=== PATIENT | male | born 1955 | race Caucasian/White ===

== ENCOUNTER 2019-01-31 00:20 | Inpatient (IN) | payer MEDICAID ==
[~2019-01-31] VITALS: Ht 190.5 cm; Wt 73.6 kg
[2019-01-31] MEDS ORDERED: MIRT45TA57 PO (00:40)
[2019-01-31] MEDS ORDERED: OMEP-110 PO (00:41)
[2019-01-31] MEDS ORDERED: QUET100T4 PO (00:42)
[2019-01-31] MEDS ORDERED: GABA600T7 PO (00:42)
--- NOTE | 2019-01-31 00:43 | NUR ---
PT BIB [facility] WITH C/O SI. PT CALLED [address] [facility] AND STATED THAT HE WAS GOING TO WALK INTO ONCOMING TRAFFIC. PT NEW TO [place]. PT ARRIVED BY BUS MONDAY AND HAS BEEN HAVING SI EVER SINCE. PT WITH PMH OF BIPOLAR. PT NON COMPLIANT WITH MEDICATIONS. PT CHANGED INTO GOWN AND RESTING IN GURNEY UPON ARRIVAL TO [facility]. PT BELONGINGS CONFISCATED AND SECURED IN LOCKED STORAGE. ROOM SECURED FOR PATIENT AND STAFF SAFETY. SITTER OUTSIDE OF PT ROOM AT THIS TIME FOR DIRECT OBSERVATION. PT VSS UPON ARRIVAL TO [facility] ED. AWAITING ERP AT THIS TIME. URINE PROVIDED VOLUNTARILY BY PATIENT.
[2019-01-31 00:48] LABS: BASOPHILS # (AUTO) 0.04 x10^3/uL (0-0.1); BASOPHILS % (AUTO) 0 % (0-1); EOSINOPHILS # (AUTO) 0.06 x10^3/uL (0-0.4); EOSINOPHILS % (AUTO) 1 % (1-7); LYMPHOCYTES # (AUTO) 1.44 x10^3/uL (1-3.4); LYMPHOCYTES % (AUTO) 14 % (22-44); MD NO; MEAN CORPUSCULAR HEMOGLOBIN 31.4 pg (27.5-34.5); MEAN CORPUSCULAR HGB CONC 33.8 g/dL (33.2-36.2); MEAN CORPUSCULAR VOLUME 92.7 fL (81-97); MEAN PLATELET VOLUME 7.6 fL (7.4-10.4); MONOCYTES # (AUTO) 0.64 x10^3/uL (0.2-0.8); MONOCYTES % (AUTO) 6 % (2-9); NEUTROPHILS % (AUTO) 80 % (42-75); PLATELET COUNT 383 x10^3/uL (130-400); RED BLOOD COUNT 4.04 x10^6/uL (4.38-5.82); RED CELL DISTRIBUTION WIDTH 14.1 % (9.4-14.8)
[2019-01-31 01:01] LABS: ALBUMIN 3.6 g/dL (3.4-5.0); ANION GAP 8 mmol/L (5-15); CALCIUM 8.3 mg/dL (8.5-10.1); CHLORIDE 112 mmol/L (98-107); CREATININE 0.99 mg/dL (0.7-1.3); SALICYLATE LEVEL 1.7 mg/dL (2.8-20.0)
[2019-01-31 01:08] LABS: ACETAMINOPHEN < 2 mcg/mL (10-30)
[2019-01-31 01:31] LABS: AMPHETAMINE SCREEN, URINE Positive (Negative); BARBITURATE SCREEN, URINE Negative (Negative); BENZODIAZEPINE SCREEN, URINE Negative (Negative); CANNABINOID SCREEN, URINE Negative (Negative); COCAINE SCREEN, URINE Negative (Negative); METHADONE SCREEN, URINE Negative (Negative); OPIATE SCREEN, URINE Negative (Negative)
--- NOTE | 2019-01-31 02:28 | NUR ---
REPORT OF PT TO SOC PHYSICIAN. ALL QUESTIONS ANSWERED.
--- NOTE | 2019-01-31 02:51 | NUR ---
Xander CABELLO received pt from [facility] Pt is awake and in no accute distress. Sandwitch and drink given to pt. Sitter at beside.
--- NOTE | 2019-01-31 04:05 | NUR ---
Patient is currently being seen by hospitalist. Pt is calm and cooperative. Sitter at doorway. Will continue to monitor.
--- NOTE | 2019-01-31 05:04 | NUR ---
Pt is asleep in bed and in no distress. Equal chest rise and fall. Sitter at doorway. Will continue to monitor.
[2019-01-31] MEDS ORDERED: POTASSIUM CHLORIDE 20 MEQ TAB.ER.PRT PO ONE (05:30)
[2019-01-31] MEDS ORDERED: CHLORDIAZEPOXIDE 25 MG CAPSULE PO PRN (05:30)
[2019-01-31] MEDS ORDERED: hydrALAzine 20 MG/ML, 1ML IVPush PRN (05:30)
--- NOTE | 2019-01-31 05:44 | NUR ---
LAURO RN: PACKET FAXED TO [facility] [place]; CONFIRMATION FAX RECEIVED BACK AT THIS TIME.
--- NOTE | 2019-01-31 06:06 | NUR ---
Pt is in bed and awake experiencing some mild coughinhg. PT states that he is not distress and his needs are met. Sitter in doorway. Will continue to monitor.
--- NOTE | 2019-01-31 07:23 | NUR ---
RECEIVED REPORT AND ASSUMED PT. CARE. PT. IS RESTING WITHOUT CONCERNS.
--- NOTE | 2019-01-31 07:25 | NUR ---
SAFETY MEASURES MAINTAINED. SITTER REMAINS OUTSIDE OF THE ROOM.
[2019-01-31] MEDS ORDERED: POTASSIUM CHLORIDE 20 MEQ TAB.ER.PRT ONE (07:32)
--- NOTE | 2019-01-31 08:24 | NUR ---
PT. WAS GIVEN BREAKFAST. PT. STATES I CAN'T EAT THAT. RN EXPLAINED TO THE PT. THAT HE DOESN'T HAVE TO EAT IF HE DOES NOT WANT TO . PT. STATES, "YOU'RE ASSHOLE TO THE RN." VITALS MONITORED. PT. IS CLOSING THE CURTAIN A SECOND TIME. RN EXPLAINED TO THE PT. THAT HE HAS TO BE IN DIRECT VIEW OF THE SITTER AND IF HE CONTINUES TO CLOSE THE CURTAIN IT WILL BE REMOVED FROM HIS ROOM.
[2019-01-31] MEDS: HYDROCHLOROTHIAZIDE 25 MG TABLET PO SCH (09:31)
--- NOTE | 2019-01-31 11:06 | NUR ---
NO CHANGE AT THIS TIME.
--- NOTE | 2019-01-31 12:56 | NUR ---
PER [facility] MEDICAL ALICE NONACTIVE
--- NOTE | 2019-01-31 13:04 | NUR ---
Reciept of Medical eligibility faxed to [facility].
--- NOTE | 2019-01-31 14:06 | NUR ---
[facility] SPOE TO [facility] REP AND THEY WILL NOT PAY SO REFUSED BY [facility]
--- NOTE | 2019-01-31 14:43 | NUR ---
SITTERS OUTSIDE OF THE PT.'S ROOM. PT. IS RESTING AT THIS TIME.
[2019-01-31] MEDS ORDERED: GUAIFENESIN 200 MG TABLET ONE (16:01)
[2019-01-31] MEDS: GUAIFENESIN 200 MG TABLET PO SCH ×2 (16:05→21:02)
--- NOTE | 2019-01-31 16:06 | NUR ---
FLOAT RN COVERING MEAL BREAK. PT AWAKE, GIVEN MED PER ORDER. PT COOPERATIVE, CALM WITH CARE. SITTER AT DOORWAY.
--- NOTE | 2019-01-31 17:23 | NUR ---
REPORT CALLED TO [facility]. PT. IS READY FOR TRANSPORT TO THE FLOOR.
[2019-01-31 19:44] VITALS: BP 148/74
[2019-01-31] MEDS ORDERED: QUETIAPINE 100MG TABLET PO SCH (21:00)
[2019-01-31] MEDS: GABAPENTIN 300 MG CAPSULE PO SCH (21:02)
[2019-01-31] MEDS: QUETIAPINE 25MG TABLET PO SCH (22:22)
[2019-01-31 22:30] VITALS: BP 128/74
[2019-02-01 07:47] VITALS: BP 122/69
[2019-02-01] MEDS: GABAPENTIN 300 MG CAPSULE PO SCH ×2 (07:50→21:09)
[2019-02-01] MEDS: HYDROCHLOROTHIAZIDE 25 MG TABLET PO SCH (07:50)
[2019-02-01] MEDS: GUAIFENESIN 200 MG TABLET PO SCH ×5 (07:51→21:10)
[2019-02-01] MEDS: OMEPRAZOLE 20 MG CAPSULE.DR PO SCH (07:51)
[2019-02-01 20:30] VITALS: BP 112/65
[2019-02-01] MEDS: MIRTAZAPINE 15 MG TABLET PO SCH ×2 (21:00→21:11)
[2019-02-01] MEDS: QUETIAPINE 25MG TABLET PO SCH (21:10)
[2019-02-02] MEDS: GUAIFENESIN 200 MG TABLET PO SCH ×4 (06:00→21:17)
[2019-02-02 08:00] VITALS: BP 114/67
[2019-02-02] MEDS: GABAPENTIN 300 MG CAPSULE PO SCH ×2 (09:11→21:17)
[2019-02-02] MEDS: HYDROCHLOROTHIAZIDE 25 MG TABLET PO SCH (09:11)
[2019-02-02] MEDS: OMEPRAZOLE 20 MG CAPSULE.DR PO SCH (09:11)
[2019-02-02 20:00] VITALS: BP 120/68
[2019-02-02] MEDS: QUETIAPINE 25MG TABLET PO SCH (21:17)
[2019-02-03] MEDS: GUAIFENESIN 200 MG TABLET PO SCH ×4 (07:40→21:34)
[2019-02-03 07:53] VITALS: BP 120/70
[2019-02-03] MEDS: HYDROCHLOROTHIAZIDE 25 MG TABLET PO SCH (08:35)
[2019-02-03] MEDS: OMEPRAZOLE 20 MG CAPSULE.DR PO SCH (08:35)
[2019-02-03] MEDS: GABAPENTIN 300 MG CAPSULE PO SCH ×2 (08:36→21:34)
[2019-02-03 20:23] VITALS: BP 115/61
[2019-02-03] MEDS: ACETAMINOPHEN 325 MG TABLET PO PRN (21:34)
[2019-02-03] MEDS: QUETIAPINE 25MG TABLET PO SCH (21:34)
[2019-02-04 08:00] VITALS: BP 111/66
[2019-02-04] MEDS: GUAIFENESIN 200 MG TABLET PO SCH ×4 (08:23→20:49)
[2019-02-04] MEDS: OMEPRAZOLE 20 MG CAPSULE.DR PO SCH (08:46)
[2019-02-04] MEDS: HYDROCHLOROTHIAZIDE 25 MG TABLET PO SCH (08:46)
[2019-02-04] MEDS: GABAPENTIN 300 MG CAPSULE PO SCH ×2 (08:47→20:49)
[2019-02-04 20:04] VITALS: BP 115/66
[2019-02-04] MEDS: QUETIAPINE 25MG TABLET PO SCH (20:49)
[2019-02-04] MEDS: ACETAMINOPHEN 325 MG TABLET PO PRN (20:49)
[2019-02-05] MEDS: GUAIFENESIN 200 MG TABLET PO SCH ×4 (05:30→20:58)
[2019-02-05 07:53] VITALS: BP 101/67
[2019-02-05] MEDS: GABAPENTIN 300 MG CAPSULE PO SCH ×2 (08:33→20:59)
[2019-02-05] MEDS: HYDROCHLOROTHIAZIDE 25 MG TABLET PO SCH (08:33)
[2019-02-05] MEDS: OMEPRAZOLE 20 MG CAPSULE.DR PO SCH (08:34)
[2019-02-05] MEDS: ACETAMINOPHEN 325 MG TABLET PO PRN ×3 (08:34→21:13)
[2019-02-05 19:43] VITALS: BP 116/66
[2019-02-05] MEDS: CLOTRIMAZOLE CRM 1%, 15GM TP SCH (20:57)
[2019-02-05] MEDS: QUETIAPINE 25MG TABLET PO SCH (20:59)
[2019-02-06 08:00] VITALS: BP 100/66
[2019-02-06] MEDS: GUAIFENESIN 200 MG TABLET PO SCH ×4 (08:45→20:52)
[2019-02-06] MEDS: OMEPRAZOLE 20 MG CAPSULE.DR PO SCH (08:47)
[2019-02-06] MEDS: GABAPENTIN 300 MG CAPSULE PO SCH ×2 (08:47→20:53)
[2019-02-06] MEDS: HYDROCHLOROTHIAZIDE 25 MG TABLET PO SCH (08:48)
[2019-02-06] MEDS: CLOTRIMAZOLE CRM 1%, 15GM TP SCH ×2 (08:51→20:52)
[2019-02-06 19:07] VITALS: BP 116/69
[2019-02-06] MEDS: QUETIAPINE 25MG TABLET PO SCH (20:53)
[2019-02-06] MEDS: ACETAMINOPHEN 325 MG TABLET PO PRN (22:37)
[2019-02-07 07:35] VITALS: BP 114/71
[2019-02-07] MEDS: GUAIFENESIN 200 MG TABLET PO SCH ×2 (08:27→11:45)
[2019-02-07] MEDS: OMEPRAZOLE 20 MG CAPSULE.DR PO SCH (08:27)
[2019-02-07] MEDS: CLOTRIMAZOLE CRM 1%, 15GM TP SCH (08:27)
[2019-02-07] MEDS: GABAPENTIN 300 MG CAPSULE PO SCH (08:27)
[2019-02-07] MEDS: HYDROCHLOROTHIAZIDE 25 MG TABLET PO SCH (08:27)
[2019-02-07] MEDS: ACETAMINOPHEN 325 MG TABLET PO PRN (08:31)
[2019-02-07] MEDS ORDERED: HYDR25TA6 PO (11:48)
== END 2019-02-07 12:25 | disposition home or self-care (01) | DRG 641 ==
LOC: ED 01:00 → EDIP 03:27 → OBSVTOIN 03:27 → 2N 17:33
PROVIDERS: ADMIT Family Medicine; ATTEND Family Medicine
DX: E87.6 Hypokalemia (principal); R45.851 Suicidal ideations; F32.9 Major depressive disorder, single episode, unspecified; B35.1 Tinea unguium; F10.10 Alcohol abuse, uncomplicated; F15.10 Other stimulant abuse, uncomplicated; F17.200 Nicotine dependence, unspecified, uncomplicated; I10 Essential (primary) hypertension; Z63.8 Other specified problems related to primary support group; Z91.14 Patient's other noncompliance with medication regimen
CPT/HCPCS: 36415; 80048; 80307; 80329; 82040; 85025; G0378; G0480